=== PATIENT | male | born 1955 | race Hispanic/Latino ===

== ENCOUNTER → 2022-10-06 | Outpatient (CLI) | payer BC, MEDICARE | LOC: MRI 07:57 | PROVIDERS: ATTEND Internal Medicine | DX: M47.816 Spondylosis without myelopathy or radiculopathy, lumbar region (principal) | CPT/HCPCS: 72148 ==

== ENCOUNTER → 2025-01-31 | Outpatient (REF) | payer MEDICARE | LOC: CT 13:09 | PROVIDERS: ATTEND Internal Medicine | DX: R19.33 Right lower quadrant abdominal rigidity (principal) | CPT/HCPCS: 74150 ==